=== PATIENT | male | born 1990 | race Caucasian/White ===

== ENCOUNTER 2017-02-20 17:29 | Emergency (ER) | payer OTHER ==
[~2017-02-20] VITALS: Ht 177.8 cm; Wt 64.6 kg
[2017-02-20 17:36] VITALS: BP 132/76
[2017-02-20 18:11] LABS: ADD MIUA? NO; BILIRUBIN NEGATIVE; BLOOD NEGATIVE; COLOR STRAW ((YELLOW)); GLUCOSE (STRIP) NEGATIVE; KETONES NEGATIVE; LEUKOCYTES NEGATIVE; NITRITE NEGATIVE; PROTEIN (STRIP) NEGATIVE; SPECIFIC GRAVITY 1.006 (1.000-1.030); UCUL ADDED? NO; UROBILINOGEN 0.2 MG/DL (0.2-1.0)
[2017-02-20 18:37] LABS: HEMATOCRIT 44.9 % (38.0-50.0); MCH 30.2 PG (29.0-34.0); MCHC 33.9 G/DL (30.0-36.0); MCV 89.1 FL (86-99); MEAN PLAT.VOLUME 10.2 uM^3 (9.0-12.4); PLATELET COUNT 207 K/uL (156-360); RBC DIS.WIDTH-CV 11.7 % (11.8-14.6); RED BLOOD COUNT 5.04 M/uL (4.00-5.50); WHITE BLOOD COUNT 8.8 K/uL (4.1-10.2)
[2017-02-20 18:47] LABS: CHLORIDE 106 mEq/L (99-109); POTASSIUM 3.6 mEq/L (3.7-5.4); SODIUM 141 mEq/L (136-147)
[2017-02-20 18:49] LABS: GLUCOSE 88 mg/dL (70-99)
[2017-02-20 18:50] LABS: ANION GAP 11 MEQ/L (2-14)
[2017-02-20 18:51] LABS: TOTAL BILIRUBIN 1.7 mg/dL (0.0-1.0)
[2017-02-20 18:52] LABS: ALKALINE PHOSPHATASE 91 IU/L (3-129)
[2017-02-20 18:53] LABS: GFR ESTIMATE (CALCULATED) > 59 mL/min/
[2017-02-20 18:54] LABS: UREA NITROGEN (BUN) 12 mg/dL (9-23)
[2017-02-20 18:56] LABS: LIPASE 20 U/L (1.0-51.0)
[2017-02-20] MEDS ORDERED: CIPRO500 MG PO (20:47)
[2017-02-20] MEDS ORDERED: TRAMADOL HCL50 MG PO (20:47)
[2017-02-20] MEDS ORDERED: NAPROSYN500 MG PO (20:47)
== END 2017-02-20 21:05 | disposition home or self-care (01) ==
LOC: EME 17:29
PROVIDERS: Physician Assistant
DX: K52.9 Noninfective gastroenteritis and colitis, unspecified (principal); M54.5 Low back pain; Z88.0 Allergy status to penicillin; F17.200 Nicotine dependence, unspecified, uncomplicated
CPT/HCPCS: 74177; 80053; 81003; 83690; 85027; 99281; 99284; J7030